=== PATIENT | female | born 1980 | race Caucasian/White ===

== ENCOUNTER → 2018-03-26 08:47 | Outpatient (CLI) | payer SELFPAY ==
[2018-04-01 13:12] LABS: HPV APTIMA, High Risk Negative (Negative)
== END ==
PROVIDERS: Visit Provider Obstetrics & Gynecology
DX: Z12.4 Encounter for screening for malignant neoplasm of cervix (principal)
CPT/HCPCS: 88175; G0145

== ENCOUNTER → 2018-04-03 08:33 | Outpatient (CLI) | payer SELFPAY ==
[2018-04-03 10:19] LABS: Free T3 2.9 pg/mL (2.18-3.98); Thyroid Stim Hormone (TSH) 2.19 uIU/mL (0.358-3.74)
[2018-04-06 09:03] LABS: Vitamin D 1,25-Dihydroxy 43.1 pg/mL (19.9-79.3)
== END ==
PROVIDERS: Visit Provider Obstetrics & Gynecology
DX: E01.0 Iodine-deficiency related diffuse (endemic) goiter (principal); R53.83 Other fatigue
CPT/HCPCS: 36415; 76536; 82652; 84443; 84481

== ENCOUNTER 2021-09-22 08:57 | Outpatient (CLI) | payer SELFPAY ==
--- NOTE | 2021-09-22 09:01 | US_ITS ---
STUDY: ULTRASOUND BREAST - LEFT REASON FOR EXAM: Female, 41 years old. Left axillary lump. The patient claims drainage arising from the lump. TECHNIQUE: Axial and longitudinal images of the LEFT breast were performed with a high resolution ultrasound transducer. # OF IMAGES: 34 COMPARISON: Comparison is made with prior mammogram done earlier in the day. FINDINGS: LEFT Breast: The palpable abnormality corresponds to a 0.8 cm x 1.2 cm x 0.3 cm hypoechoic fluid and solid density just deep to the skin line. A track leads to the skin surface. This may represent an infected sebaceous cyst. US/Breast Limited Unilateral IMPRESSION: The palpable abnormality most likely corresponds to an infected sebaceous cyst with a tract leading to the skin surface. Clinical correlation is recommended. ASSESSMENT CATEGORY: BIRADS Category 2: Benign. A letter regarding these results will be sent to the patient by the facility within 30 days. Electronically Signed: Cristopher Woodward MD at 11:15 EST ,
--- NOTE | 2021-09-22 09:01 | BI_ITS ---
MAMMOGRAPHY - BILATERAL DIAGNOSTIC REASON FOR EXAM: Female, 41 years old. Left axillary lump. PERTINENT HISTORY: Non-contributory. TECHNIQUE: Digital bilateral breast dorina (3D mammographic acquisition) in the CC and MLO projections. 2-D mediolateral oblique (MLO) and craniocaudad (CC) views of both breasts were obtained. CAD: Full Field Digital Mammography with Computer Added Detection was performed. COMPARISON: None. Baseline examination. FINDINGS: Breast Composition: There are scattered areas of fibroglandular density. There are no dominant masses or suspicious calcifications. Bilateral axillary lymphadenopathy. No other significant abnormalities are identified. BI/DIAG MAMM W/CAD, BILAT IMPRESSION: Negative diagnostic mammogram. With the patient''s history of a palpable lump in the left axillary region, correlation with ultrasound is recommended. ASSESSMENT CATEGORY: BIRADS Category 0: Incomplete. Need additional imaging evaluation. A letter regarding these results will be sent to the patient by the facility within 30 days. Approximately 10% of breast cancers are not detected by mammography. A normal mammogram should not delay biopsy of a clinically suspicious abnormality. Electronically Signed: Cristopher Woodward MD at 10:06 [facility] ,
== END 2021-09-22 23:59 | disposition home or self-care (01) ==
PROVIDERS: Visit Provider Obstetrics & Gynecology
DX: N63.20 Unspecified lump in the left breast, unspecified quadrant (principal)
CPT/HCPCS: 76642; 77062; 77066; G0279